=== PATIENT | male | born 1985 | race Caucasian/White ===

== ENCOUNTER 2020-11-12 08:23 | Emergency (ER) | payer MEDICAID ==
[~2020-11-12] VITALS: Ht 170.2 cm; Wt 80.0 kg
[2020-11-12] MEDS ORDERED: ONDANSETRON HCL 4MG/2ML INJ IV STA (08:38)
[2020-11-12] MEDS ORDERED: SODIUM CHLORIDE 0.9% 1,000 ML IV ONE (08:45)
[2020-11-12 09:11] LABS: BASOPHILS % 0.7 % (0.0-2.0); EOSINOPHILS % 0.3 % (0.0-5.0); HEMATOCRIT. 49.6 % (42.0-52.0); HEMOGLOBIN. 16.4 g/dL (14.0-18.0); LYMPHOCYTES % 15.8 % (20.0-50.0); MEAN CORPUSCULAR HEMOGLOBIN 26.3 pg (28.0-32.0); MEAN CORPUSCULAR VOLUME 79.5 fL (80.0-94.0); MEAN PLATELET VOLUME 7.1 fl (7.4-10.4); MONOCYTES % 4.8 % (2.0-8.0); NEUTROPHILS % 78.4 % (40.0-76.0); PLATELET 296 x1000/uL (130-400); RED BLOOD CELL COUNT 6.24 mill/uL (4.7-6.1)
[2020-11-12 09:14] LABS: CHLORIDE 102 mEq/L (98-107)
[2020-11-12 09:18] LABS: ETHANOL BLOOD 97 mg/dL
[2020-11-12 10:25] LABS: CLARITY URINE CLEAR (CLEAR); COLOR URINE YELLOW (YELLOW); KETONES URINE NEGATIVE (NEGATIVE); LEUKOCYTE ESTERASE URINE NEGATIVE (NEGATIVE); NITRITE URINE NEGATIVE (NEGATIVE); OCCULT BLOOD URINE NEGATIVE (NEGATIVE); PH URINE 6.5 (4.5-8.0); PROTEIN URINE NEGATIVE (NEGATIVE); SPECIFIC GRAVITY URINE 1.019 (1.005-1.030); UROBILINOGEN URINE 0.2 E.U./dL (0.2-1.0)
[2020-11-12 10:40] LABS: *AMPHETAMINES SCREEN URINE NEGATIVE (NEGATIVE); *BARBITURATES SCREEN URINE NEGATIVE (NEGATIVE)
[2020-11-12 10:41] LABS: *BENZODIAZEPINES SCREEN URINE NEGATIVE (NEGATIVE); *COCAINE SCREEN URINE NEGATIVE (NEGATIVE); CANNABINOID URINE SCREEN NEGATIVE (NEGATIVE); METHADONE URINE SCREEN NEGATIVE (NEGATIVE); OPIATES URINE SCREEN NEGATIVE (NEGATIVE); PHENCYCLIDINE URINE SCREEN NEGATIVE (NEGATIVE)
[2020-11-12] MEDS ORDERED: LORAZEPAM 2MG/ML CPJ IV ONE (12:00)
[2020-11-12] MEDS ORDERED: ONDA4TAB5 MT (13:38)
[2020-11-12] MEDS ORDERED: L25 MT ×2 (13:38→16:55)
[2020-11-12] MEDS ORDERED: ACETAMINOPHEN 500MG TABLET PO ONE (14:30)
[2020-11-12 14:36] VITALS: BP 152/98
[2020-11-12] MEDS ORDERED: IOHEXOL-300 100 ML BOTTLE ONE (14:47)
== END 2020-11-12 14:40 | disposition home or self-care (01) ==
LOC: ER 09:21
DX: R10.13 Epigastric pain (principal); F10.229 Alcohol dependence with intoxication, unspecified; R10.9 Unspecified abdominal pain; Y90.4 Blood alcohol level of 80-99 mg/100 ml; R07.89 Other chest pain; R11.2 Nausea with vomiting, unspecified
CPT/HCPCS: 36415; 74177; 80053; 80305; 80320; 81003; 83690; 85025; 93005; 96361; 96374; 96375; 99285; J2060; J2405; J7030; Q9967; G0480

== ENCOUNTER 2021-03-06 11:19 | Emergency (ER) | payer MEDICAID ==
[~2021-03-06] VITALS: Ht 172.7 cm; Wt 77.0 kg
[~2021-03-06 11:19] MED LIST: L25 MT; ONDA4TAB5 MT
[2021-03-06] MEDS ORDERED: DOCU-138 MT (11:55)
[2021-03-06] MEDS ORDERED: PHEN51CR24 TP (11:55)
[2021-03-06] MEDS ORDERED: HYDR25SU37 RC (11:55)
[2021-03-06 12:10] VITALS: BP 128/83
== END 2021-03-06 12:12 | disposition home or self-care (01) ==
LOC: ER 11:19
DX: K64.4 Residual hemorrhoidal skin tags (principal)
CPT/HCPCS: 99283

== ENCOUNTER 2022-09-18 05:42 | Emergency (ER) | payer MEDICAID ==
[~2022-09-18] VITALS: Ht 165.1 cm; Wt 82.0 kg
[~2022-09-18 05:42] MED LIST changes: +DOCU-138 MT; +HYDR25SU37 RC; +PHEN51CR24 TP
[2022-09-18 05:47] VITALS: BP 144/98
[2022-09-18] MEDS ORDERED: ONDANSETRON HCL 4MG/2ML INJ IV STA (07:58)
[2022-09-18] MEDS ORDERED: LORAZEPAM 2MG/ML CPJ IV ONE (08:00)
[2022-09-18] MEDS ORDERED: SODIUM CHLORIDE 0.9% 1,000 ML IV ONE (08:00)
[2022-09-18] MEDS ORDERED: FAMOTIDINE 20MG/2ML VIAL IV ONE (08:00)
[2022-09-18] MEDS ORDERED: CHLORDIAZEPOXIDE 25MG CAPSULE PO ONE (08:00)
[2022-09-18 10:07] LABS: CHLORIDE 101 mEq/L (98-107)
[2022-09-18 10:13] LABS: BASOPHILS % 0.2 % (0.0-2.0); EOSINOPHILS % 0.1 % (0.0-5.0); HEMATOCRIT. 49.7 % (42.0-52.0); HEMOGLOBIN. 16.4 g/dL (14.0-18.0); LYMPHOCYTES % 24.1 % (20.0-50.0); MEAN CORPUSCULAR HEMOGLOBIN 27.1 pg (28.0-32.0); MEAN CORPUSCULAR VOLUME 82.4 fL (80.0-94.0); MEAN PLATELET VOLUME 7.5 fl (7.4-10.4); MONOCYTES % 5.7 % (2.0-8.0); NEUTROPHILS % 69.9 % (40.0-76.0); PLATELET 347 x1000/uL (130-400); RED BLOOD CELL COUNT 6.04 mill/uL (4.7-6.1)
[2022-09-18 10:17] LABS: ETHANOL BLOOD 123 mg/dL
== END 2022-09-18 09:05 | disposition home or self-care (01) ==
LOC: ER 05:42
DX: F10.239 Alcohol dependence with withdrawal, unspecified (principal); Y90.6 Blood alcohol level of 120-199 mg/100 ml
CPT/HCPCS: 36415; 80053; 80320; 85025; 93005; 96374; 96375; 99284; J2060; J2405; J3490; J7030; G0480

== ENCOUNTER 2023-01-24 22:23 | Emergency (ER) | payer MEDICAID ==
[~2023-01-24] VITALS: Ht 170.2 cm; Wt 76.0 kg
[2023-01-24] MEDS ORDERED: SODIUM CHLORIDE 0.9% 1,000 ML IV ONE (23:00)
[2023-01-25 01:46] LABS: BASOPHILS % 0.9 % (0.0-2.0); EOSINOPHILS % 1.5 % (0.0-5.0); HEMATOCRIT. 41.7 % (42.0-52.0); HEMOGLOBIN. 13.3 g/dL (14.0-18.0); LYMPHOCYTES % 35.5 % (20.0-50.0); MEAN CORPUSCULAR HEMOGLOBIN 26.2 pg (28.0-32.0); MEAN CORPUSCULAR VOLUME 82.2 fL (80.0-94.0); MONOCYTES % 9.3 % (2.0-8.0); NEUTROPHILS % 52.8 % (40.0-76.0); PLATELET 246 x1000/uL (130-400); RED BLOOD CELL COUNT 5.07 mill/uL (4.7-6.1); RED CELL DISTRIBUTION WIDTH 13.7 % (11.6-14.6)
[2023-01-25 01:51] LABS: CLARITY URINE CLEAR (CLEAR); COLOR URINE YELLOW (YELLOW); KETONES URINE NEGATIVE (NEGATIVE); LEUKOCYTE ESTERASE URINE NEGATIVE (NEGATIVE); NITRITE URINE NEGATIVE (NEGATIVE); OCCULT BLOOD URINE NEGATIVE (NEGATIVE); PH URINE 6.5 (4.5-8.0); PROTEIN URINE NEGATIVE (NEGATIVE); SPECIFIC GRAVITY URINE 1.011 (1.005-1.030); UROBILINOGEN URINE 0.2 E.U./dL (0.2-1.0)
[2023-01-25 01:56] LABS: CHLORIDE 106 mEq/L (98-107)
[2023-01-25 02:04] LABS: ETHANOL BLOOD < 10 mg/dL
[2023-01-25] MEDS ORDERED: LORA-250 MT (02:40)
[2023-01-25] MEDS: ACETAMINOPHEN 325MG TABLET PO NR ×2 (03:19→03:38)
[2023-01-25 06:16] VITALS: BP 155/76
== END 2023-01-25 06:17 | disposition home or self-care (01) ==
LOC: ER 22:23
DX: F10.239 Alcohol dependence with withdrawal, unspecified (principal); F10.229 Alcohol dependence with intoxication, unspecified; Y90.0 Blood alcohol level of less than 20 mg/100 ml
CPT/HCPCS: 36415; 80053; 80320; 81003; 85025; 96360; 99284; G0480